=== PATIENT | male | born 1945 | race Caucasian/White ===

== ENCOUNTER → 2018-09-08 | Outpatient (CLI) | payer OTHER ==
--- NOTE | ~2018-09-08 | PFR/MVV ---
[facility] [place] [address] PULMONARY FUNCTION MVV/REPORT Name: LANG MERIDA Room #: [facility] Carlos Eduardo.#: [id number] ������������������ Admission: 09/08/18 ������������������ Attend Phys: Ayaan Gomez MD Discharge: ������������������ Date of : 49 Report #: [id number] THIS REPORT FOR: //name// DEANNA FOR: AGE:������ 73 SEX/RACE:� M/C >> SPIROMETRY: (BTPS) Height: 71 in cm Weight: 71 lbs kg Exam Date: 09/08/18 PRE-RX POST-RX PRED BEST %PRED BEST %PRED %CHG FVC LITERS . 4.49 . 3.71 . 83 . 3.54 . 79 . -5 FEV1 LITERS . 3.00 . 2.75 . 92 . 2.88 . 96 . 5 FEV1/FVC % . 68 . 74 . 109 . 81 . 120 . 10 EYA44-65% L/Sec . 2.66 . 1.92 . 72 . 3.07 . 116 . 60 PEF L/SEC . 8.47 . 6.75 . 80 . 7.51 . 89 . 11 FEF50/FIF50 UNITLESS . . 1.50 . . 0.96 . . -36 MVV L/Min . 130 . 71 . 55 f 1/Min . . 130 . >> LUNG VOLUMES: (BTPS) PRE-RX POST-RX PRED AVG %PRED AVG %PRED %CHG VC Liters . 4.49 . 3.90 . 87 . . . TLC Liters . 6.73 . 11.38 . 169 . . . RV Liters . 2.63 . 7.74 . 284 . . . RV/TLC % . 41 . 66 . 160 . . . FRC PL Liters . 3.82 . 8.77 . 230 . . . FRC N2 Liters . . . . . . ERV Liters . 1.53 . 1.29 . 85 . . . IC Liters . 3.06 . 2.56 . 84 . . . >> DIFFUSION: DLCO ml/Min/mmHg . 21.9 . 16.6 . 76 . . . DL Valeria ml/Min/mmHg . 21.9 . 16.6 . 76 . . . DLCO/VA ml/Min/mmHg . 3.56 . 3.66 . 103 . . . VA Liters . . 4.54 . . . . [facility] [address] [place] [address] PULMONARY FUNCTION MVV/REPORT Name: LANG MERIDA Room #: [facility].#: [id number] ������������������ Admission: 09/08/18 ������������������ Attend Phys: Ayaan Gomez MD Discharge: ������������������ Date of : 49 Report #: [id number] COMMENTS: COMMENTS: >> RESISTANCE: PRE-RX PRED AVG %PRED Raw Total cmH20/L/Sec . . 5.13 . Raw Insp cmH20/L/Sec . . 2.29 . Raw Exp cmH20/L/Sec . . . Raw cmH20/L/Sec . 1.16 . 5.96 . 515 Gaw L/Sec/cmH20 . 0.916 . 0.168 . 18 sRaw cmH20 Sec . 4.41 . 50.05 . 1134 sGaw l/cmH20 Sec . 0.227 . 0.020 . 9 Vtq Liters . . 8.40 . # = OUTSIDE 95% CONFIDENCE INTERVAL CALIBRATION: PRED: 3.00 ACTUAL: EXP 3.01 INSP 3.02 [facility]-OL10-06 [facility]-[place]-05 N-1804-4 >> INTERPRETATION/IMPRESSION: CC: Ayaan Gomez DATE OF SERVICE: 09/08/2018 SPIROMETRY: FEV1 is 2.75 liters (92%), FVC is 3.71 liters (83%). FEV1/FVC ratio is 74%. Postbronchodilator therapy with no significant response. Total lung capacity is 11.38 liters (169%). Vital capacity is 3.90 liters (87%). RV is 7.47 liters (284%). Diffusing capacity 76%. IMPRESSION: Pulmonary function studies are with a borderline obstructive [facility] [address] [place] [address] PULMONARY FUNCTION MVV/REPORT Name: LANG MERIDA Room #: GRACE SLY Contreras#: [id number] ������������������ Admission: 09/08/18 ������������������ Attend Phys: Ayaan Gomez MD Discharge: ������������������ Date of : 49 Report #: [id number] airflow defect, with no significant response to bronchodilator therapy. There is moderate air trapping. Diffusing capacity is normal. ��������������������������������������������� ���������������������������������������� By: ��������������������������������������������� Daniel Robert MD /salbador
== END ==
LOC: PUL 09:56
DX: J40 Bronchitis, not specified as acute or chronic (principal)